=== PATIENT | female | born 1955 | race African-American/Black ===

== ENCOUNTER 2017-07-14 07:40 | Emergency (ER) | payer BC, MEDICAID ==
[~2017-07-14] VITALS: Ht 154.9 cm; Wt 109.0 kg
[2017-07-14] MEDS ORDERED: TRIA1TAB94 PO (08:19)
[2017-07-14] MEDS ORDERED: METF-516 PO (08:19)
[2017-07-14] MEDS ORDERED: CITA10SO PO (08:19)
[2017-07-14] MEDS ORDERED: SODIUM CHLORIDE 0.9% 1,000 ML IV ONE (10:09)
[2017-07-14 10:42] LABS: BASOPHILS % 0.6 % (0.0-2.0); EOSINOPHILS % 4.5 % (0.0-5.0); HEMATOCRIT. 41.1 % (36.0-48.0); HEMOGLOBIN. 13.9 g/dL (12.0-16.0); LYMPHOCYTES % 24.2 % (20.0-50.0); MEAN CORPUSCULAR HEMOGLOBIN 32.1 pg (28.0-32.0); MEAN CORPUSCULAR VOLUME 94.9 fL (81.0-99.0); MEAN PLATELET VOLUME 9.3 fl (7.4-10.4); MONOCYTES % 9.2 % (2.0-8.0); NEUTROPHILS % 61.5 % (40.0-76.0); PLATELET 261 x1000/uL (130-400); RED BLOOD CELL COUNT 4.33 mill/uL (4.2-5.4); RED CELL DISTRIBUTION WIDTH 14.6 % (11.6-14.6)
[2017-07-14 10:45] LABS: CLARITY URINE CLEAR (CLEAR); COLOR URINE YELLOW (YELLOW); GLUCOSE URINE NEGATIVE (NEGATIVE); KETONES URINE NEGATIVE (NEGATIVE); LEUKOCYTE ESTERASE URINE NEGATIVE (NEGATIVE); NITRITE URINE NEGATIVE (NEGATIVE); OCCULT BLOOD URINE NEGATIVE (NEGATIVE); PH URINE 5.5 (4.5-8.0); PROTEIN URINE NEGATIVE (NEGATIVE); SPECIFIC GRAVITY URINE 1.017 (1.005-1.030); UROBILINOGEN URINE 0.2 E.U./dL (0.2-1.0)
[2017-07-14] MEDS ORDERED: KETOROLAC 30MG/ML VIAL IV ONE (10:45)
[2017-07-14 11:00] LABS: CARBON DIOXIDE 29 mEq/L (21-32); CHLORIDE 103 mEq/L (98-107); TROPONIN I < 0.02 ng/mL (0.00-0.04)
[2017-07-14 13:40] VITALS: BP 124/80
== END 2017-07-14 14:01 | disposition home or self-care (01) ==
LOC: ER 08:16
DX: M54.6 Pain in thoracic spine (principal); N19 Unspecified kidney failure; I10 Essential (primary) hypertension; E11.9 Type 2 diabetes mellitus without complications; F12.10 Cannabis abuse, uncomplicated; R11.0 Nausea; Z88.0 Allergy status to penicillin
CPT/HCPCS: 36415; 71010; 80053; 81003; 82962; 84484; 85025; 85610; 85730; 93005; 96361; 96374; 99285; J1885; J7030; Z7610

== ENCOUNTER 2021-10-09 09:15 | Emergency (ER) | payer BC, MEDICAID ==
[~2021-10-09] VITALS: Ht 165.1 cm; Wt 78.0 kg
[~2021-10-09 09:15] MED LIST: CITA10SO PO; METF-818 PO; TRIA1TAB94 PO
[2021-10-09] MEDS ORDERED: ONDANSETRON HCL 4MG/2ML INJ IV STA (09:36)
[2021-10-09] MEDS ORDERED: ACETAMINOPHEN 500MG TABLET PO ONE (09:45)
[2021-10-09] MEDS ORDERED: SODIUM CHLORIDE 0.9% 1,000 ML IV ONE (09:45)
[2021-10-09 10:01] LABS: BASOPHILS % 0.5 % (0.0-2.0); EOSINOPHILS % 0.1 % (0.0-5.0); HEMATOCRIT. 45.7 % (36.0-48.0); HEMOGLOBIN. 15.4 g/dL (12.0-16.0); LYMPHOCYTES % 9.1 % (20.0-50.0); MEAN CORPUSCULAR HEMOGLOBIN 32.5 pg (28.0-32.0); MEAN CORPUSCULAR VOLUME 96.7 fL (81.0-99.0); MEAN PLATELET VOLUME 8.6 fl (7.4-10.4); MONOCYTES % 6.2 % (2.0-8.0); NEUTROPHILS % 84.1 % (40.0-76.0); PLATELET 227 x1000/uL (130-400); RED BLOOD CELL COUNT 4.73 mill/uL (4.2-5.4); RED CELL DISTRIBUTION WIDTH 14.3 % (11.6-14.6)
[2021-10-09 10:11] LABS: CHLORIDE 94 mEq/L (98-107)
[2021-10-09] MEDS ORDERED: ONDA4TAB5 MT (12:21)
[2021-10-09 12:45] VITALS: BP 123/77
== END 2021-10-09 13:55 | disposition home or self-care (01) ==
LOC: ER 09:15
DX: U07.1 COVID-19 (principal); E11.9 Type 2 diabetes mellitus without complications; I10 Essential (primary) hypertension; F17.210 Nicotine dependence, cigarettes, uncomplicated; F12.10 Cannabis abuse, uncomplicated; Z79.84 Long term (current) use of oral hypoglycemic drugs; Z98.890 Other specified postprocedural states; Z88.0 Allergy status to penicillin
CPT/HCPCS: 36415; 71045; 80053; 83880; 84484; 85025; 93005; 96374; 99285; C9803; J2405; J7030; U0003; U0005

== ENCOUNTER 2021-10-11 07:31 | Emergency (ER) | payer MEDICAID ==
[~2021-10-11] VITALS: Ht 170.2 cm; Wt 90.0 kg
[~2021-10-11 07:31] MED LIST changes: +ONDA4TAB5 MT
[2021-10-11 10:24] LABS: BASOPHILS % 0.3 % (0.0-2.0); EOSINOPHILS % 0.4 % (0.0-5.0); HEMOGLOBIN. 13.2 g/dL (12.0-16.0); LYMPHOCYTES % 13.4 % (20.0-50.0); MEAN CORPUSCULAR HEMOGLOBIN 33.2 pg (28.0-32.0); MEAN CORPUSCULAR VOLUME 95.7 fL (81.0-99.0); MEAN PLATELET VOLUME 8.4 fl (7.4-10.4); MONOCYTES % 10.4 % (2.0-8.0); NEUTROPHILS % 75.5 % (40.0-76.0); PLATELET 225 x1000/uL (130-400); RED BLOOD CELL COUNT 3.97 mill/uL (4.2-5.4); RED CELL DISTRIBUTION WIDTH 14.3 % (11.6-14.6)
[2021-10-11 10:30] LABS: CHLORIDE 98 mEq/L (98-107)
[2021-10-11 10:46] LABS: BG BASE EXCESS 0.5 mmol/L (-2.0-2.0); BG CARBOXYHEMOGLOBIN 0.5 % (0.5-1.5); BG DEOXYHEMOGLOBIN 4.7 % (0.0-5.0); BG FRACTION INSPIRED OXYGEN 21; BG METHEMOGLOBIN 0.1 % (0.0-1.5); BG OXYGEN SATURATION 95.3 % (92.0-98.5); BG OXYHEMOGLOBIN 94.7 % (94.0-97.0); BG PCO2 35.1 mmHg (35.0-45.0); BG PH 7.452 (7.350-7.450); BG PO2 76.3 mmHg (75.0-100.0); BG SAMPLE SITE RIGHT BRACHIAL; BG VENT MODE ROOM AIR
[2021-10-11] MEDS ORDERED: TOPUD PO (11:05)
[2021-10-11] MEDS ORDERED: SODIUM CHLORIDE 0.9% IV ONE (11:45)
[2021-10-11] MEDS ORDERED: BAMLANIVIMAB IV ONE (11:45)
[2021-10-11] MEDS ORDERED: CASIRIVIMAB 600 MG, IMDEVIMAB 600 MG in SODIUM CHLORIDE 0.9% 100 ML IV NR (12:00)
[2021-10-11 14:31] LABS: CLARITY URINE CLEAR (CLEAR); COLOR URINE YELLOW (YELLOW); KETONES URINE NEGATIVE (NEGATIVE); LEUKOCYTE ESTERASE URINE TRACE (NEGATIVE); NITRITE URINE NEGATIVE (NEGATIVE); OCCULT BLOOD URINE NEGATIVE (NEGATIVE); PH URINE 6.5 (4.5-8.0); PROTEIN URINE NEGATIVE (NEGATIVE); SPECIFIC GRAVITY URINE 1.007 (1.005-1.030); UROBILINOGEN URINE 0.2 E.U./dL (0.2-1.0)
[2021-10-11 15:09] VITALS: BP 136/74
== END 2021-10-11 15:10 | disposition home or self-care (01) ==
LOC: ER 07:31 → CANBEDREQ 20:45
DX: U07.1 COVID-19 (principal); I10 Essential (primary) hypertension; E11.9 Type 2 diabetes mellitus without complications; F12.10 Cannabis abuse, uncomplicated; Z79.84 Long term (current) use of oral hypoglycemic drugs; Z88.0 Allergy status to penicillin
CPT/HCPCS: 36415; 36600; 71045; 80053; 81003; 82375; 82805; 83605; 84145; 84484; 85025; 87040; 87086; 93005; 96365; 99285; J7050; J7517; Q0244; Q0245

== ENCOUNTER 2021-12-30 14:03 | Inpatient (IN) | payer MEDICAID ==
[~2021-12-30] VITALS: Ht 165.1 cm; Wt 109.4 kg
[~2021-12-30 14:03] MED LIST changes: +TOPUD PO
[2021-12-30 15:25] LABS: EOSINOPHILS % 4.1 % (0.0-5.0); HEMATOCRIT. 43.4 % (36.0-48.0); HEMOGLOBIN. 14.9 g/dL (12.0-16.0); LYMPHOCYTES % 35.8 % (20.0-50.0); MEAN CORPUSCULAR HEMOGLOBIN 32.4 pg (28.0-32.0); MEAN CORPUSCULAR VOLUME 94.3 fL (81.0-99.0); MEAN PLATELET VOLUME 8.6 fl (7.4-10.4); MONOCYTES % 9.9 % (2.0-8.0); NEUTROPHILS % 49.2 % (40.0-76.0); PLATELET 343 x1000/uL (130-400); RED CELL DISTRIBUTION WIDTH 14.7 % (11.6-14.6)
[2021-12-30 15:30] LABS: CHLORIDE 98 mEq/L (98-107)
[2021-12-30] MEDS ORDERED: ACETAMINOPHEN 325MG TABLET PO ONE (19:30)
[2021-12-30] MEDS ORDERED: LORAZEPAM 0.5MG TABLET PO ONE (20:15)
[2021-12-30 20:57] LABS: CLARITY URINE CLEAR (CLEAR); COLOR URINE YELLOW (YELLOW); KETONES URINE NEGATIVE (NEGATIVE); LEUKOCYTE ESTERASE URINE NEGATIVE (NEGATIVE); NITRITE URINE NEGATIVE (NEGATIVE); OCCULT BLOOD URINE NEGATIVE (NEGATIVE); PROTEIN URINE NEGATIVE (NEGATIVE); SPECIFIC GRAVITY URINE 1.014 (1.005-1.030); UROBILINOGEN URINE 0.2 E.U./dL (0.2-1.0)
[2021-12-30 21:11] LABS: D-DIMER 0.59 mg/L FEU (<0.50); PARTIAL THROMBOPLASTIN TIME 29.6 sec (23.4-31.0); PROTHROMBIN TIME 10.5 sec (9.6-11.0)
[2021-12-30] MEDS: APIXABAN 5 MG TABLET PO SCH (23:22)
[2021-12-31] MEDS ORDERED: HYDROCODONE/ACETAMINOPHEN 5/325MG TABLET PO PRN (01:30)
[2021-12-31] MEDS ORDERED: ONDANSETRON 4MG ODT PO PRN (02:00)
[2021-12-31] MEDS ORDERED: ACETAMINOPHEN 325MG TABLET PO PRN (02:00)
[2021-12-31 02:14] VITALS: BP 137/85
[2021-12-31 04:00] VITALS: BP 125/79
[2021-12-31] MEDS ORDERED: DEXTROSE 50% WATER 50ML SYRINGE IV PRN (04:00)
[2021-12-31] MEDS: INSULIN LISPRO 100 UNITS/ML SUBCUT SCH ×2 (06:32→11:45)
[2021-12-31] MEDS: BLOOD SUGAR DIAGNOSTIC STRIP TEST SCH ×2 (06:32→11:45)
[2021-12-31] MEDS ORDERED: METFORMIN HCL 500MG TABLET PO SCH (07:15)
[2021-12-31 08:00] VITALS: BP 113/75
[2021-12-31] MEDS: APIXABAN 5 MG TABLET PO SCH (08:35)
[2021-12-31] MEDS ORDERED: TRIAMTERENE/HYDROCHLOROTHIAZIDE 37.5/25MG CAPSULE PO SCH (09:00)
[2021-12-31] MEDS ORDERED: ENOXAPARIN 100MG/ML SYR SUBCUT SCH ×2 (09:00)
[2021-12-31] MEDS ORDERED: CITALOPRAM HYDROBROMIDE 10MG TABLET PO SCH (09:00)
[2021-12-31 12:00] VITALS: BP 142/85
[2021-12-31 12:14] VITALS: BP 142/85
[2021-12-31] MEDS ORDERED: NALOXONE HCL 0.4MG/ML VIAL IV PRN (14:30)
[2022-01-06] MEDS ORDERED: APIXABAN 5 MG TABLET PO SCH (21:00)
== END 2021-12-31 14:15 | disposition home or self-care (01) | DRG 197 ==
LOC: ER 14:03 → MICUSO 21:54 → ENRESERV 22:52 → 5WST 12-31 00:57
PROVIDERS: ADMIT Internal Medicine; ATTEND Internal Medicine
DX: I82.431 Acute embolism and thrombosis of right popliteal vein (principal); E87.1 Hypo-osmolality and hyponatremia; E11.9 Type 2 diabetes mellitus without complications; I10 Essential (primary) hypertension; F41.9 Anxiety disorder, unspecified; R00.2 Palpitations; Z88.0 Allergy status to penicillin; Z82.49 Family history of ischemic heart disease and other diseases of the circulatory system; Z79.1 Long term (current) use of non-steroidal anti-inflammatories (NSAID); Z79.84 Long term (current) use of oral hypoglycemic drugs; Z79.899 Other long term (current) drug therapy; E66.01 Morbid (severe) obesity due to excess calories; Z68.41 Body mass index [BMI] 40.0-44.9, adult; Z71.3 Dietary counseling and surveillance
CPT/HCPCS: 36415; 71045; 73030; 80053; 81003; 82962; 83880; 84484; 85025; 85379; 93005; 93970; 99285; Q0162

== ENCOUNTER 2022-06-15 11:22 | Emergency (ER) | payer MEDICAID ==
[~2022-06-15] VITALS: Ht 154.9 cm; Wt 109.0 kg
[2022-06-15 11:32] VITALS: BP 152/79
[2022-06-15] MEDS ORDERED: ACETAMINOPHEN 325MG TABLET PO ONE (12:30)
[2022-06-15] MEDS ORDERED: LIDOCAINE 5% PATCH TOP SCH (12:30)
[2022-06-15] MEDS ORDERED: HYDROCODONE/ACETAMINOPHEN 5/325MG TABLET PO ONE (13:00)
[2022-06-15] MEDS ORDERED: T3 PO (14:28)
[2022-06-15] MEDS ORDERED: LIDO700A15 TP (14:28)
== END 2022-06-15 15:15 | disposition home or self-care (01) ==
LOC: ER 11:22
DX: S22.32XA Fracture of one rib, left side, initial encounter for closed fracture (principal); M79.18 Myalgia, other site; E11.9 Type 2 diabetes mellitus without complications; I10 Essential (primary) hypertension; X50.1XXA Overexertion from prolonged static or awkward postures, initial encounter; Y93.F1 Activity, caregiving, bathing; Y92.89 Other specified places as the place of occurrence of the external cause; Y99.9 Unspecified external cause status; Z88.0 Allergy status to penicillin
CPT/HCPCS: 71101; 99283